=== PATIENT | female | born 2000 | race African-American/Black ===

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

== ENCOUNTER 2019-05-28 03:34 | Emergency (ER) | payer MEDICAID, OTHER ==
--- NOTE | 2019-05-28 06:38 | ER Document Report ---
HPI - HPI Time Seen by Provider: 05/28/19 06:09 Pain Level: 2 Context: Patient is a 18-year-old female that comes emergency department with chief complaint of pain over her ribs on both side, mainly over the top of her chest but also in the lower ribs in the front at times. She states she notices this more when she is smoking. Pain is slightly worse with deep breathing but not at the moment. She denies any current symptoms. Pain is also worse with movement, especially moving her arms up over her head. She denies difficulty breathing, fever/chills, nausea/vomiting, abdominal pain, flank pain, headache. She denies injury. She denies history of the same. She smokes marijuana and cigarettes, denies ever using recreational drugs, denies any medical history otherwise. Denies . - CARDIOVASCULAR Cardiovascular: REPORTS: Chest pain - REPRODUCTIVE LMP: 05/16 Reproductive: DENIES: : Past Medical History - General Information source: Patient - Social History Smoking Status: Never Smoker Frequency of alcohol use: None Lives with: Family Family History: Reviewed & Not Pertinent Patient has suicidal ideation: No Patient has homicidal ideation: No - Medical History Medical History: Negative Renal/ Medical History: Denies: Hx Peritoneal Dialysis Surgical Hx: Negative - Immunizations Immunizations up to date: Yes Hx Diphtheria, Pertussis, Tetanus Vaccination: Yes Vertical Provider Document - CONSTITUTIONAL General Appearance: WD/WN, No Apparent Distress - INFECTION CONTROL TRAVEL OUTSIDE OF THE [place] IN LAST 30 DAYS: No - HEENT HEENT: Atraumatic, Normal ENT Exam, Normocephalic - NECK Neck: Normal Inspection - RESPIRATORY Respiratory: Breath Sounds Normal, No Respiratory Distress. negative: Chest Non-Tender - specific pain over the anterior mid chest which is reproducable on palpation. No erythema, swelling, or crepitus. Normal chest otherwise. No tachypnea or respiratory distress - CARDIOVASCULAR Cardiovascular: Regular Rate, Regular Rhythm - GI/ABDOMEN Gastrointestinal: Abdomen Soft, Abdomen Non-Tender - BACK Back: Normal Inspection - MUSCULOSKELETAL/EXTREMETIES Musculoskeletal/Extremeties: MAEW, FROM, Non-Tender - NEURO Level of Consciousness: Awake, Alert, Appropriate Motor/Sensory: No Motor Deficit, No Sensory Deficit - DERM Integumentary: Warm, Dry, No Rash Course - Re-evaluation Re-evalutation: Chest x-ray unremarkable. Patient with very specific chest pain over the chest wall with palpation. Very reproducible. No concerning findings otherwise. Patient calm and well-appearing. No fever. EKG unremarkable as well. Very low suspicion of any acute intra-thoracic abnormality. Discussed treatment options, given dexamethasone, discussed follow-up and return precautions. Patient states understanding and agreed with plan. Stable at time of discharge. - Vital Signs Vital signs: Temp Pulse Resp BP Pulse Ox 98.6 F 88 16 117/84 99 05/28/19 03:38 05/28/19 03:38 05/28/19 03:38 05/28/19 03:38 05/28/19 03:38 - EKG Interpretation by Me Additional EKG results interpreted by me: EKG sinus rhythm, normal QTC, normal axis, no T wave inversions or ST segment changes in consecutive leads. Discharge - Discharge Clinical Impression: Chest wall pain Condition: Stable Disposition: HOME, SELF-CARE Additional Instructions: Your chest x-ray and EKG do not show any concerning findings. Your examination is most consistent with costochondritis, inflammation of the cartilage between your ribs. This gradually resolves with time, I recommend heat, rest, and have been treated to help recovery progress faster. You can take [id number] anti-inflammatories and Tylenol. Follow-up with primary care. Return for concerning symptoms including fever, difficulty breathing, passing out, or any other concerning or worsening symptoms.
--- NOTE | 2019-05-28 07:00 | RADIOLOGY REPORT (SQ) ---
EXAM DESCRIPTION: XR CHEST 2 VIEWS COMPLETED DATE/TME: 05/28/2019 06:17 CLINICAL HISTORY: chest pain COMPARISON: None. FINDINGS: Frontal and lateral views of the chest. The cardiomediastinal silhouette has normal size and contour. No consolidation, pneumothorax, or pleural effusion. No displaced rib fractures identified. Upper abdominal soft tissues are unremarkable. IMPRESSION: 1. No acute pulmonary process identified.
[2019-05-28] MEDS ORDERED: DEXAMETHASONE SOD PHOS INJ 10 MG/1 ML VIAL IM ONE (07:34)
[2019-05-28 07:39] VITALS: BP 110/50
--- NOTE | 2019-05-28 09:22 | EKG REPORT ---
SEVERITY:- NORMAL ECG - SINUS RHYTHM : Confirmed by: Byron Bhandari MD 28-May-2019 09:21:34
== END 2019-05-28 08:02 | disposition home or self-care (01) ==
LOC: ER 03:34
DX: R07.89 Other chest pain (principal); F17.210 Nicotine dependence, cigarettes, uncomplicated
CPT/HCPCS: 93005; 99284; 96372; 71046; 93010; J1100

== ENCOUNTER 2019-11-03 05:29 | Emergency (ER) | payer BC | END 2019-11-03 05:53 | disposition left against medical advice (07) | LOC: ER 05:29 | DX: Z53.21 Procedure and treatment not carried out due to patient leaving prior to being seen by health care provider (principal) ==

== ENCOUNTER 2020-02-19 22:12 | Emergency (ER) | payer SELFPAY ==
[2020-02-19 23:28] LABS: ABSOLUTE EOSINOPHILS # (AUTO) 0.1 10^3/uL (0.0-0.6); ABSOLUTE LYMPHOCYTES (AUTO) 1.8 10^3/uL (0.5-4.7); ABSOLUTE MONOCYTES (AUTO) 0.4 10^3/uL (0.1-1.4); ABSOLUTE NEUT (AUTO) 2.2 10^3/uL (1.7-8.2); BASOPHILS % (AUTO) 0.8 % (0-2); EOSINOPHILS % (AUTO) 1.4 % (0-6); HEMOGLOBIN 12.7 g/dL (12.0-15.5); LYMPHOCYTES % (AUTO) 39.8 % (13-45); MEAN CORPUSCULAR HEMOGLOBIN 30.3 pg (27.0-33.4); MEAN CORPUSCULAR HGB CONC 34.4 g/dL (32.0-36.0); MEAN CORPUSCULAR VOLUME 88 fl (80-97); MONOCYTES % (AUTO) 8.5 % (3-13); PLATELET COUNT 302 10^3/uL (150-450); RED BLOOD COUNT 4.19 10^6/uL (3.72-5.28); RED CELL DISTRIBUTION WIDTH 14.6 % (11.5-14.0); SEGMENTED NEUTROPHILS % (AUTO) 49.5 % (42-78); TOTAL CELLS COUNTED % (AUTO) 100 %; WHITE BLOOD COUNT 4.5 10^3/uL (4.0-10.5)
[2020-02-19 23:44] LABS: ACETAMINOPHEN < 10 ug/mL (10-30); ALBUMIN 4.8 g/dL (3.5-5.0); ALCOHOL < 10 mg/dL (NONE DETECTED); ALKALINE PHOSPHATASE 88 U/L (38-126); ANION GAP 8 (5-19); ASPARTATE AMINO TRANSFERASE 24 U/L (14-36); BILIRUBIN,TOTAL 0.4 mg/dL (0.2-1.3); BLOOD UREA NITROGEN 16 mg/dL (7-20); CALCIUM 9.7 mg/dL (8.4-10.2); CARBON DIOXIDE 25 mmol/L (22-30); CHLORIDE 104 mmol/L (98-107); GLUCOSE 99 mg/dL (75-110); POTASSIUM 4.1 mmol/L (3.6-5.0); SALICYLATE < 1.0 mg/dL (2.0-20.0); TOTAL PROTEIN 7.8 g/dL (6.3-8.2)
--- NOTE | 2020-02-20 00:22 | ER Document Report ---
Entered by IBRAHIMA LANG SCRIBE 02/20/20 0004 Acting as scribe for:SHERRI ABREU IV, MD ED Psych Disorder / Suicide - General Chief Complaint: Psych Problem Stated Complaint: PSYCH Time Seen by Provider: 02/19/20 23:52 Mode of Arrival: Ambulatory Information source: Patient Notes: This 19 year old female patient with a history of depression presents to the ED today with complaints of increased depression for the past x1 month. Patient states that she has been arguing more with her family and has been under a lot of stress which has contributed to her depression. Patient has been out of her depression medications for x1 year due to not having insurance per ED nurse. She reports suicidal ideation with a plan to drink bleach. She also notes homicidal ideation and verbalizes wanting to harm her grandmother. TRAVEL OUTSIDE OF THE [place] IN LAST 30 DAYS: No - Related Data Allergies/Adverse Reactions: Penicillins Allergy (Unknown, Verified 02/19/20 23:01) Past Medical History - General Information source: Patient - Social History Smoking Status: Current Every Day Smoker Cigarette use (# per day): Yes Chew tobacco use (# tins/day): No Smoking Education Provided: No Frequency of alcohol use: Occasional Drug Abuse: None Lives with: Family Family History: Reviewed & Not Pertinent Patient has suicidal ideation: Yes Patient has homicidal ideation: Yes Psychiatric Medical History: Reports: Hx Depression - Immunizations Immunizations up to date: Yes Hx Diphtheria, Pertussis, Tetanus Vaccination: Yes Review of Systems - Review of Systems Constitutional: No symptoms reported EENT: No symptoms reported Cardiovascular: No symptoms reported Respiratory: No symptoms reported Gastrointestinal: No symptoms reported Genitourinary: No symptoms reported Female Genitourinary: No symptoms reported Musculoskeletal: No symptoms reported Skin: No symptoms reported Hematologic/Lymphatic: No symptoms reported Neurological/Psychological: See HPI, Depression, Homicidal ideation, Suicidal ideation -: Yes All other systems reviewed and negative Physical Exam - Vital signs Vitals: Temp Pulse Resp BP Pulse Ox 99.0 F 72 12 117/76 98 02/19/20 22:19 02/19/20 22:19 02/19/20 22:19 02/19/20 22:19 02/19/20 22:19 Interpretation: Normal - General General appearance: Alert In distress: None - HEENT Head: Normocephalic, Atraumatic Eyes: Normal Pupils: PERRL - Respiratory Respiratory status: No respiratory distress Chest status: Nontender Breath sounds: Normal Chest palpation: Normal - Cardiovascular Rhythm: Regular Heart sounds: Normal auscultation Murmur: No - Abdominal Inspection: Normal Distension: No distension Bowel sounds: Normal Tenderness: Nontender - Abdomen soft Organomegaly: No organomegaly - Back Back: Normal, Nontender - Extremities General upper extremity: Normal inspection General lower extremity: Normal inspection - Neurological Neuro grossly intact: Yes - Psychological Associated symptoms: Depressed, Flat affect - Skin Skin Temperature: Warm Skin Moisture: Dry Skin Color: Normal Course - Vital Signs Vital signs: Temp Pulse Resp BP Pulse Ox 99 F 72 12 117/76 98 02/19/20 23:05 02/19/20 22:19 02/19/20 22:19 02/19/20 22:19 02/19/20 22:19 - Laboratory Result Diagrams: 02/19/20 23:15 02/19/20 23:15 Laboratory results interpreted by me: 02/19/20 02/19/20 02/20/20 23:15 23:15 00:00 RDW 14.6 H Sodium 136.6 L Urine Protein 30 H Urine Blood SMALL H Urine Urobilinogen 4.0 H Salicylates < 1.0 L Acetaminophen < 10 L Discharge - Discharge Clinical Impression: Suicidal ideation Condition: Good Disposition: PSYCH HOSP/UNIT I personally performed the services described in the documentation, reviewed and edited the documentation which was dictated to the scribe in my presence, and it accurately records my words and actions.
[2020-02-20 00:40] LABS: APPEARANCE,URINE SLIGHTLY-CLOUDY; BILIRUBIN,URINE NEGATIVE (NEGATIVE); COLOR,URINE YELLOW; GLUCOSE, URINE NEGATIVE (NEGATIVE); KETONES,URINE NEGATIVE (NEGATIVE); LEUKOCYTE ESTERASE,URINE NEGATIVE (NEGATIVE); NITRITE,URINE NEGATIVE (NEGATIVE); PROTEIN,URINE 30 mg/dL (NEGATIVE); URINE SPECIFIC GRAVITY 1.027
[2020-02-20 00:51] LABS: URINE AMPHETAMINES SCREEN NEGATIVE; URINE BARBITURATES SCREEN NEGATIVE; URINE BENZODIAZEPINES SCREEN NEGATIVE; URINE COCAINE SCREEN NEGATIVE; URINE METHADONE SCREEN NEGATIVE; URINE PHENCYCLIDINE SCREEN NEGATIVE
[2020-02-20 00:53] LABS: URINE MARIJUANA (THC) SCREEN UNCONFIRMED POSITIVE
--- NOTE | 2020-02-20 07:11 | EKG REPORT ---
SEVERITY:- NORMAL ECG - SINUS RHYTHM : Confirmed by: Byron Bhandari MD 20-Feb-2020 07:10:24
[2020-02-20] MEDS ORDERED: OLANZAPINE 2.5 MG TABLET PO SCH (18:00)
--- NOTE | 2020-02-20 19:31 | ER Document Report ---
Doctor's Note Notes: 02/20/20 19:31 Patient came to the emergency room last night with depression and suicidal ideation but no plan specific plan. She was started on medication today. She is voluntarily here in the emergency room and will be reassessed tomorrow by the behavioral health team to see how she feels after with medication.
[2020-02-20 23:09] VITALS: BP 109/62
--- NOTE | 2020-02-21 02:49 | PSYCHOLOGICAL NOTE ---
Psych Note - Psych Note Date seen by psych provider: 02/20/20 Time seen by psych provider: 12:98 - [id number] Psych Note: Presenting Problem: Patient is a 19 year old female who presented to the [facility] ED last evening via EMS for suicidal ideation with plan to drink bleach and homicidal ideation towards grandmother whom she resides with. Patient identified "I was down, I have been struggling with depression for a long time, I tried to kill myself before, I felt myself going down that path, I came here to stop doing it before I go too far." She identified she only had thoughts and did not have action. Patient noted trigger was "when I try to talk to my family about how I feel and they make jokes." She then stated it was specifically her grandmother who "started laughing and said maybe I didn't try hard enough to kill myself." She reported her grandmother is who she views as a mother figure (her mother several years ago, father in and out of skilled nursing), how grandmother reacted to her made her "mad and angry, I have never been the type to put my hands on anybody but if I go back and she says something like." Patent identified that "She stated her thought was to drink bleach, she had tried doing so previous (was a previous ED visit 2017) when her grandmother just left the home and her younger brother stopped her from doing so. She acknowledged she was hospitalized at [facility], put on medication which she thinks was Zoloft or something like it, took it for 1 month after discharge, had follow up at [facility] and only went once. Patient identified "I felt good so stopped taking the medication and going because I didn't think I needed it." Patient denied being on medication or in therapy currently. She stated she resided in the home with her grandmother, cousin and brother. Patient reported she had been trying to go live with Aunt in [place] and that has been stressful. She stated she was open to medication and therapy then commented "I need to go inpatient to get on medication again." She was made aware she does not have to go inpatient to get back on medication but would need to do her part and follow up outpatient to maintain the medication and engage in therapy. She stated she does not have insurance now and was made aware there are places to be seen in the community that utilize stat funding so no cost or low cost treatment options available. Patient made aware grandmother could be contacted to obtain information and she commented "I don't want you to ask her questions because she is going to say I had a Tantrum, I didn't get my way and not take it serious." Patient was alert and oriented to self, person, place, time and situation. Mood was euthymic with congruent affect. She denied taking action with respect to SI and HI, had thoughts to drink bleach and tried to do that in the past (previous ED Visit that resulted in hospitalization at [facility]), said how grandmother reacted to her opening up upset her which made her want to put her hands on grandmother and she has never been the type to out her hands on a nybody, and said she came to the ED to stop and not go too far. Patient did not appear to be responding to internal stimuli as evidenced by fair eye contact and answering questions appropriately when addressed. Conversational speech was within normal limits for rate, tone and prosody. Thought processes were linear and organized. Intellectual abilities are estimated to be average. Insight, judgment and impulse control were fair as evidenced by coming to ED to get help. Patient was informed she could utilize telephone to make phone calls for a place to stay this evening as she was going to be discharged. She did not take advantage of that opportunity. When confronted she said there is nowhere else to go. Asked about the friend she was trying to go to last night and patient said that was not an option. She was informed grandmother said she could return to her home. She stated she would just go back to grandmother's as there is nowhere else for her to go. She did not make statements, endorse or make a gestures regarding suicide or homicide. She stated her grandmother would not be able to provide transportation. [facility] [employer] obtained collateral (the following is copied and pasted from her note): Patient's grandmother returned phone call. Grandmother reports that patient "goes through these spells" and felt patient was going to have another episode. Grandmother states when patient has "these spells" patient becomes "rageful." Grandmother denies a history of physical violence. Grandmother stated that this episode was precipitated by patient's request late in the evening for her to be driven to a friend's house. Grandmother informed patient that she was unable to do that as it was dark and she has trouble driving at night. Grandmother re ports everything was fine until she could not give patient "her way." Grandmother states that in order to de-escalate the situation she went into her room and locked the door. Patient then demanded to speak with her [id number] and attempted to unlock the door with a butter knife. Grandmother states that anytime she has to tell patient no patient states she does not love her. Patient has been living between her grandfather aunt, and her grandmother's house, but has "episodes" if things do not go her way. Grandmother states patient only endorses suicidal ideation when things are not going her way. Grandmother states she is unaware of anyone that patient could stay with, other than the grandfather or aunt. Grandmother states patient is able to return to her home. Interventions: Used open ended questioning to obtain information regarding current crisis situation and past, as well as to get patient to elaborate. Challenged and confronted patient about options for staying somewhere this evening. Reiterated and encouraged self efficacy by how she showed good insight and judgment by not taking action and coming to ED for help. Provided psycho-education on medication management, how when people feel good they think they can stop medications and other treatment before considering how those are likely they very things that made them feel better, individual therapy and how that is treatment where she can learn about her triggers, negative coping skills and more positive coping skills. Also provided psychoeducation on how medications can be started on an outpatient level. Diagnosis: Suicidal Ideation Relationship Distress with grandmother Medication recommendations made by the psychiatric medication provider Dr. Gail MD., includes: Add Zyprexa 2.5MG twice a day for mood stabilization/impulse control Impression/Plan: Patient is cleared from acute psychiatric services. Patient showed good insight and judgment by wanting to come to the ED to not go too far her her thinking. She stated she was open to getting back on medication and doing therapy. She described SI as passive thoughts but not taking action. She described HI towards grandmother as feeling angry with grandmother's response and wanting to put hands on her (no specific thoughts or plan, no history of such aggression towards anyone). Patient was alert and oriented x5 with linear thinking and no observable signs of responding to internal stimuli. Grandmother identified trigger to last evening being patient not able to get her way which was going to a friend's house so late (grandmother unable to drive at night), patient makes SI statements when she doesn't get her way, grandmother felt safe herself and that patient would be safe and grandmother said patient could return. Since grandmother does not drive at night was able to obtain one time cab voucher. Patient provided the outpatient mental health resource sheet which highlighted both MCM numbers and documented walk in times for [facility] and I[facility]. She was encouraged to follow up first thing in the morning and made aware with the pandemic they may ask her to do tele services for safety. Consulted with Dr. Sanchez regarding the management and care of patient. ED Physician in agreement with recommendations.
== END 2020-02-20 23:12 | disposition home or self-care (01) ==
LOC: ER 22:12
DX: F32.9 Major depressive disorder, single episode, unspecified (principal); R45.851 Suicidal ideations; R45.850 Homicidal ideations; F17.210 Nicotine dependence, cigarettes, uncomplicated; Z88.0 Allergy status to penicillin
CPT/HCPCS: 93005; 99284; 36415; 80307 ×4; 84703; 85025; 80053; 81001; 93010; J3490